=== PATIENT | male | born 1990 | race Caucasian/White ===

== ENCOUNTER 2017-01-09 06:40 | Emergency (ER) | payer OTHER ==
[~2017-01-09 06:40] MED LIST: BACTRIM DS TAB1 EACH PO; CEPHALEXIN500 MG PO; DOXYCYCLINE HY100 MG PO; EFFEXOR XR37.5 MG PO; NORCO 5-325 TA1 EACH PO; RANITIDINE HCL150 MG PO; SEPTRA DS TABL1 EACH PO; ULTRAM50 MG PO
[2017-01-09] MEDS ORDERED: NORCO 5-325 TA1 EACH PO (08:25)
== END 2017-01-09 08:50 | disposition home or self-care (01) ==
LOC: ED 06:40
DX: S39.011A Strain of muscle, fascia and tendon of abdomen, initial encounter (principal); F17.200 Nicotine dependence, unspecified, uncomplicated; F32.9 Major depressive disorder, single episode, unspecified; X50.0XXA Overexertion from strenuous movement or load, initial encounter
CPT/HCPCS: 80053; 81001; 85025; 99283

== ENCOUNTER 2021-05-08 06:54 | Emergency (ER) | payer OTHER ==
[~2021-05-08] VITALS: Ht 172.7 cm; Wt 56.0 kg
[~2021-05-08 06:54] MED LIST changes: +EFFEXOR XR150 MG PO
[2021-05-08] MEDS ORDERED: BACTRIM DS TAB1 EACH PO (07:48)
== END 2021-05-08 07:55 | disposition home or self-care (01) ==
LOC: ED 06:54
DX: L72.3 Sebaceous cyst (principal); Z87.891 Personal history of nicotine dependence
CPT/HCPCS: 10060; 99283-25

== ENCOUNTER 2023-05-17 06:56 | Emergency (ER) | payer OTHER ==
[~2023-05-17] VITALS: Ht 172.7 cm; Wt 70.7 kg
[~2023-05-17 06:56] MED LIST changes: +ONDANSETRON ODT4 MG PO; +PRILOSEC OTC20 MG PO; +VENLAFAXINE HCL75 MG PO
[2023-05-17] MEDS ORDERED: SULFAMETHOXAZO1 EAC1 PO (07:29)
[2023-05-17 08:35] VITALS: BP 149/96
== END 2023-05-17 08:30 | disposition home or self-care (01) ==
LOC: ED 06:56
DX: L02.811 Cutaneous abscess of head [any part, except face] (principal); Z87.891 Personal history of nicotine dependence; Z88.0 Allergy status to penicillin
CPT/HCPCS: 10060; 99282-25; A9270